=== PATIENT | female | born 1975 | race American Indian/Alaskan Native ===

== ENCOUNTER 2019-05-07 14:57 | Emergency (ER) | payer OTHER ==
[2019-05-07 15:14] VITALS: BP 150/83
--- NOTE | 2019-05-07 15:14 | Emergency Department Report ---
Blank Doc - Documentation Documentation: 43 y old female presents with wrenching pain to abd admits v/d labs
[2019-05-07 16:00] LABS: Basophils % (Auto) 0.4 % (0.0-1.8); Eosinophils # (Auto) 0.2 K/mm3 (0.0-0.4); Eosinophils % (Auto) 1.8 % (0.0-4.3); Hematocrit 32.3 % (30.3-42.9); Lymphocytes % (Auto) 10.7 % (13.4-35.0); Mean Corpuscular HGB Conc 31 % (30-34); Monocytes # (Auto) 0.4 K/mm3 (0.0-0.8); Monocytes % (Auto) 4.3 % (0.0-7.3); Platelet Count 357 K/mm3 (140-440); Red Blood Count 4.75 M/mm3 (3.65-5.03); Red Cell Distribution Width 18.2 % (13.2-15.2)
[2019-05-07 16:01] LABS: Mean Corpuscular Volume 68 fl (79-97)
[2019-05-07 16:19] LABS: Bilirubin,Urine NEG (Negative); Blood,Urine NEG (Negative); Color,Urine Yellow (Yellow); Mucus,Urine FEW /HPF; Protein,Urine <15 mg/dL mg/dL (Negative); Urobilinogen,Urine < 2.0 mg/dL (<2.0)
[2019-05-07 16:25] LABS: Alanine Aminotransferase 12 units/L (7-56); Albumin 3.8 g/dL (3.9-5); BUN/Creatinine Ratio 14; Blood Urea Nitrogen 7 mg/dL (7-17); Calcium 9.1 mg/dL (8.4-10.2); Hemolysis Index 3
--- NOTE | 2019-05-07 18:03 | Cat Scan Report ---
CT ABDOMEN AND PELVIS WITH CONTRAST HISTORY: Abdominal pain, nausea, vomiting, diarrhea COMPARISON: 10/07/2018 CT. TECHNIQUE: Routine abdominal and pelvic CT exam performed following intravenous contrast administrat ion.. All CT scans at this location are performed using CT dose reduction for ALARA by means of autom ated exposure control. FINDINGS: CT ABDOMEN: Lung Bases: No significant abnormality. Liver: No significant abnormality. Biliary: No significant abnormality. Spleen: No significant abnormality. Unenlarged. Pancreas: No significant abnormality. Adrenals: No significant abnormality. Kidneys: No significant abnormality. Lymphatics: No lymphadenopathy. Vasculature: No significant abnormality. Bowel/Peritoneum: There is moderate edema and wall thickening of the small bowel in the mid abdomen, likely within the ileum. There is no pneumatosis, portal venous gas, or free air. There is stable mil d dilation of the appendiceal lumen without appendicolith or periappendiceal inflammatory change. CT PELVIC: : Small right ovarian cyst noted. Trace likely physiologic free fluid in the pelvis. Lymphatics: No lymphadenopathy. Osseous Structures: No aggressive appearing osseous lesions. Additional Findings: None IMPRESSION: 1. Wall thickening and edema of the small bowel in the midabdomen suggesting enteritis, likely infect ious. No pneumatosis or portal venous gas to suggest ischemia. No free air. No bowel obstruction. 2. Stable mild dilatation of the appendix without appendicolith or periappendiceal inflammatory arechiga e. This likely represents normal anatomic variation. Signer Name: Chan Mercedes MD Signed: 05/07/2019 5:59 PM Workstation Name: [id number]
[2019-05-07] MEDS ORDERED: PEPCID IV ONE (19:59)
[2019-05-07] MEDS ORDERED: TORADOL IV ONE (19:59)
[2019-05-07] MEDS ORDERED: FLAGYL 500 MG/100 ML 500 MG/100 ML BAG IV ONE (19:59)
[2019-05-07] MEDS ORDERED: ZOFRAN IV ONE (19:59)
[2019-05-07] MEDS ORDERED: LEVAQUIN PO ONE (20:00)
[2019-05-07] MEDS ORDERED: NACL 0.9% 1000 ML 1,000 ML IV ONE (20:00)
--- NOTE | 2019-05-07 21:55 | Emergency Department Report ---
ED N/V/D HPI - General Chief complaint: Nausea/Vomiting/Diarrhea Stated complaint: ABDOMINAL PAIN/VOMITING DIARRHEA Time Seen by Provider: 05/07/19 15:12 Source: patient Mode of arrival: Ambulatory Limitations: No Limitations - History of Present Illness Initial comments: Patient is a 43-year-old -[place] female with h/o NIDDM presents to the ED with the complaint of acute onset persistent intermittent nausea, vomiting, diarrhea and abdominal pain for the last 12 hours. Patient unsure of etiology of the symptoms but states that she has not been able to keep anything down since the onset of the symptoms. Patient states that initially the vomiting was projectile but in the course of the day not much of emesis came out because there was nothing to vomit. Patient states that no one else at home has had similar symptoms. Patient denies fever, chills, dizziness, chest pain, shortness of breath, sore throat, back pain, dysuria, urinary frequency and urgency, vaginal bleeding, vaginal discharge, no back pain, headache or changes in vision or hematochezia and hematemesis. MD complaint: nausea, vomiting, diarrhea, abdominal pain -: Sudden, hour(s) (12) Description of Vomiting: food contents, watery, bilious Description of Diarrhea: water Associated Abdominal Pain: Yes (diffuse) Location: diffuse Radiation: none Severity: severe Pain Scale: 8 Quality: cramping, aching, sharp Consistency: intermittent Improves with: none Worsens with: none Associated Symptoms: loss of appetite, malaise, nausea/vomiting. denies: myalgias, chest pain, cough, diaphoresis, fever/chills, headaches, rash, dysuria, shortness of breath, syncope - Related Data Previous Rx's Medication Instructions Recorded Last Taken Type Pantoprazole [Protonix] 40 mg PO QDAY #30 tablet 10/08/18 Unknown Rx Ciprofloxacin HCl [Ciprofloxacin 500 mg PO Q12HR #20 tab 05/07/19 Unknown Rx TAB] Dicyclomine [Bentyl] 20 mg PO Q6H PRN #24 tablet 05/07/19 Unknown Rx Promethazine [Phenergan] 25 mg PO Q6HR PRN #24 tab 05/07/19 Unknown Rx Ranitidine HCl [Zantac] 150 mg PO Q12H #30 tablet 05/07/19 Unknown Rx metroNIDAZOLE [Flagyl] 500 mg PO Q8HR #30 tablet 05/07/19 Unknown Rx Allergies Allergy/AdvReac Type Severity Reaction Status Date / Time latex Allergy Rash Verified 05/07/19 15:02 ED Review of Systems ROS: Stated complaint: ABDOMINAL PAIN/VOMITING DIARRHEA Other details as noted in HPI Constitutional: denies: chills, fever Eyes: denies: eye pain, eye discharge, vision change ENT: denies: ear pain, throat pain Respiratory: denies: cough, shortness of breath, wheezing Cardiovascular: denies: chest pain, palpitations Endocrine: no symptoms reported Gastrointestinal: abdominal pain, nausea, vomiting, diarrhea Genitourinary: denies: urgency, dysuria, discharge Musculoskeletal: denies: back pain, joint swelling, arthralgia Skin: denies: rash, lesions Neurological: denies: headache, weakness, paresthesias Psychiatric: denies: anxiety, depression Hematological/Lymphatic: denies: easy bleeding, easy bruising ED Past Medical Hx - Past Medical History Previous Medical History?: Yes Hx Diabetes: Yes Additional medical history: Obesity - Surgical History Past Surgical History?: Yes Additional Surgical History: left hip sx x 2 - Social History Smoking Status: Never Smoker Substance Use Type: None - Medications Home Medications: Home Medications Medication Instructions Recorded Confirmed Last Taken Type Pantoprazole [Protonix] 40 mg PO QDAY #30 tablet 10/08/18 Unknown Rx Ciprofloxacin HCl [Ciprofloxacin 500 mg PO Q12HR #20 tab 05/07/19 Unknown Rx TAB] Dicyclomine [Bentyl] 20 mg PO Q6H PRN #24 tablet 05/07/19 Unknown Rx Promethazine [Phenergan] 25 mg PO Q6HR PRN #24 tab 05/07/19 Unknown Rx Ranitidine HCl [Zantac] 150 mg PO Q12H #30 tablet 05/07/19 Unknown Rx metroNIDAZOLE [Flagyl] 500 mg PO Q8HR #30 tablet 05/07/19 Unknown Rx ED Physical Exam - General Limitations: No Limitations General appearance: alert, in no apparent distress - Head Head exam: Present: atraumatic, normocephalic, normal inspection - Eye Eye exam: Present: normal appearance, PERRL, EOMI Pupils: Present: normal accommodation - ENT ENT exam: Present: normal exam, normal orophraynx, mucous membranes moist, TM's normal bilaterally, normal external ear exam - Neck Neck exam: Present: normal inspection, full ROM - Respiratory Respiratory exam: Present: normal lung sounds bilaterally. Absent: respiratory distress, wheezes, rales, stridor, chest wall tenderness, accessory muscle use, decreased breath sounds, prolonged expiratory - Cardiovascular Cardiovascular Exam: Present: normal rhythm, tachycardia, normal heart sounds. Absent: systolic murmur, diastolic murmur, rubs, gallop - GI/Abdominal GI/Abdominal exam: Present: soft, tenderness (diffuse, no gurading or rebound), normal bowel sounds. Absent: hyperactive bowel sounds, hypoactive bowel sounds, organomegaly, mass - Rectal Rectal exam: Present: deferred - Extremities Exam Extremities exam: Present: normal inspection, full ROM, normal capillary refill - Back Exam Back exam: Present: normal inspection, full ROM. Absent: tenderness, CVA tenderness (R), CVA tenderness (L), muscle spasm - Neurological Exam Neurological exam: Present: alert, oriented X3, CN II-XII intact, normal gait, reflexes normal - Psychiatric Psychiatric exam: Present: normal affect, normal mood - Skin Skin exam: Present: warm, dry, intact, normal color. Absent: rash ED Course Vital Signs 05/07/19 15:11 Temperature 98.6 F Pulse Rate 104 H Respiratory 20 Rate Blood Pressure 150/83 O2 Sat by Pulse 99 Oximetry - Reevaluation(s) Reevaluation #1: 05/07/19 22:05 Patient is alert and oriented 3 and is not in distress with normal vital signs. Lab test results were reviewed and are all unremarkable and non-actionable. Patient was treated for nausea and vomiting and pain, and also given antacids in the ED with normal saline 1 L IV bolus. Abdomen pelvis CT scan with contrast shows wall thickening and edema of the small bowel in the mid abdomen suggesting enteritis, likely infectious. There was no pneumatosis or portal venous gas is to suggest ischemia. No free air or bowel obstruction. There is however stable mild dilatation of the appendix without appendicolith or periappendiceal inflammatory change. This likely sensed normal anatomic variation. On reevaluation, patient's pain is well controlled with medications, and patient has not had any nausea or vomiting or diarrhea while in the ED. Patient was treated in the ED also with antibiotics Flagyl and Levaquin. Patient was discharged home on pain medications, antacids, antiemetics and antibiotics and advised to follow-up with her primary care physician in 5-7 days for reevaluation. Patient is advised to return to the ED immediately if symptoms get worse. 05/07/19 22:05 05/07/19 22:07 ED Medical Decision Making - Lab Data Result diagrams: 05/07/19 15:42 05/07/19 15:42 - Radiology Data Radiology results: report reviewed, image reviewed Abdomen pelvis CT scan with contrast shows wall thickening and edema of the small bowel in the mid abdomen suggesting enteritis, likely infectious. There was no pneumatosis or portal venous gas is to suggest ischemia. No free air or bowel obstruction. There is however stable mild dilatation of the appendix without appendicolith or periappendiceal inflammatory change. This likely sensed normal anatomic variation. - Medical Decision Making Patient is alert and oriented 3 and is not in distress with normal vital signs. Lab test results were reviewed and are all unremarkable and non-actionable. Patient was treated for nausea and vomiting and pain, and also given antacids in the ED with normal saline 1 L IV bolus. Abdomen pelvis CT scan with contrast shows wall thickening and edema of the small bowel in the mid abdomen suggesting enteritis, likely infectious. There was no pneumatosis or portal venous gas is to suggest ischemia. No free air or bowel obstruction. There is however stable mild dilatation of the appendix without appendicolith or periappendiceal inflammatory change. This likely sensed normal anatomic variation. On reevaluation, patient's pain is well controlled with medications, and patient has not had any nausea or vomiting or diarrhea while in the ED. Patient was treated in the ED also with antibiotics Flagyl and Levaquin. Patient was discharged home on pain medications, antacids, antiemetics and antibiotics and advised to follow-up with her primary care physician in 5-7 days for reevaluation. Patient is advised to return to the ED immediately if symptoms get worse. - Differential Diagnosis Abodminal pain, Nausea, vomiting, diarrhea, gastroentiritis, colitis Critical care attestation.: If time is entered above; I have spent that time in minutes in the direct care of this critically ill patient, excluding procedure time. ED Disposition Clinical Impression: Nausea vomiting and diarrhea Abdominal pain Qualifiers: Abdominal location: periumbilical Qualified Code(s): R10.33 - Periumbilical pain Infectious enteritis Qualifiers: Enteritis organism: unspecified infectious agent Qualified Code(s): A09 - Infectious gastroenteritis and colitis, unspecified Disposition: DC- TO HOME OR SELFCARE Is pt being admited?: No Does the pt Need Aspirin: No Condition: Stable Instructions: Abdominal Pain (ED), Acute Nausea and Vomiting (ED) Additional Instructions: Take medications atenolol, drink plenty of fluids and follow up with your primary care physician in 5-7 days for reevaluation. Return to the ED immediately if symptoms get worse. Prescriptions: Dicyclomine [Bentyl] 20 mg PO Q6H PRN #24 tablet PRN Reason: Pain , Severe (7-10) Ciprofloxacin HCl [Ciprofloxacin TAB] 500 mg PO Q12HR #20 tab metroNIDAZOLE [Flagyl] 500 mg PO Q8HR #30 tablet Promethazine [Phenergan] 25 mg PO Q6HR PRN #24 tab PRN Reason: Nausea Ranitidine HCl [Zantac] 150 mg PO Q12H #30 tablet Referrals: NAHID MARVIN [Other] - 3-5 Days Time of Disposition: 21:52 Print Language: MACEDONIAN
== END 2019-05-07 22:18 | disposition home or self-care (01) ==
LOC: ED 14:57
DX: A09 Infectious gastroenteritis and colitis, unspecified (principal); E11.9 Type 2 diabetes mellitus without complications; Z79.899 Other long term (current) drug therapy; Z91.040 Latex allergy status
CPT/HCPCS: 36415; 74177; 80053; 81001; 82150; 83690; 84703; 85025; 96365; 96375; 99284; J1885; J2405; J7030; Q9967